=== PATIENT | male | born 1970 | race Caucasian/White ===

== ENCOUNTER 2018-02-03 09:44 | Emergency (ER) | payer OTHER ==
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
[2018-02-03] MEDS ORDERED: LET GEL TOPICAL 1 EA SYR TP ONE (09:56)
[2018-02-03 10:03] VITALS: RESP 18
[2018-02-03 11:45] VITALS: BP 130/81; PULSE 82; O2SAT 95
[2018-02-03] MEDS ORDERED: IBUPROFEN 600 MG TAB PO ONE (11:51)
== END 2018-02-03 11:58 | disposition home or self-care (01) ==
LOC: EDUNIT#
PROC: 0HQ1XZZ Repair Face Skin, External Approach (ICD-10-PCS; principal; 2018-02-03)
DX: S09.90XA Unspecified injury of head, initial encounter (principal); S01.81XA Laceration without foreign body of other part of head, initial encounter; S01.511A Laceration without foreign body of lip, initial encounter; S50.312A Abrasion of left elbow, initial encounter; S80.212A Abrasion, left knee, initial encounter; S60.419A Abrasion of unspecified finger, initial encounter; I10 Essential (primary) hypertension; V18.9XXA Unspecified pedal cyclist injured in noncollision transport accident in traffic accident, initial encounter; Y92.410 Unspecified street and highway as the place of occurrence of the external cause; Y93.89 Activity, other specified